=== PATIENT | male | born 1955 | race Caucasian/White ===

== ENCOUNTER → 2024-08-03 13:36 | Outpatient (REF) | payer MEDICARE, OTHER, SELFPAY | LOC: RCS 13:36 | PROVIDERS: ATTENDING PHYSICIAN Internal Medicine; FAMILY PHYSICIAN Internal Medicine | DX: I48.0 Paroxysmal atrial fibrillation (principal); I47.29 Other ventricular tachycardia | CPT/HCPCS: 93306 ==